=== PATIENT | female | born 1980 | race African-American/Black ===

== ENCOUNTER 2021-10-10 16:25 | Emergency (ER) | payer SELFPAY ==
[2021-10-10] MEDS ORDERED: Metoclopramide HCl 10 MG/2 ML VIAL ONE (17:08)
[2021-10-10] MEDS ORDERED: Ketorolac Tromethamine 30 MG/ML VIAL ONE (17:08)
[2021-10-10] MEDS ORDERED: diphenhydrAMINE 50 MG/ML VIAL ONE (17:08)
[2021-10-10 17:31] LABS: #Monocytes 0.4 10x3/uL (0.0-1.1); #Neutrophils 3.1 10x3/uL (1.5-8.4); %Basophils 0.8 % (0.0-2.0); %Eosinophils 0.5 % (0.0-6.0); %Lymphocytes 8.3 % (18.0-47.0); %Monocytes 11.1 % (0.0-10.0); %Neutrophils 78.8 % (40.0-75.0); Hemoglobin 12.9 g/dL (12.0-15.5); Mean Corpuscular HGB CONC 33.7 g/dL (32.0-36.0); Mean Corpuscular Volume 83.3 fl (81.6-98.3); Mean Platelet Volume 10.4 fl (7.4-10.4); Platelet Count 190 10x3/uL (150-450); White Blood Cell (WBC) Count 3.9 10x3/uL (3.5-10.5)
[2021-10-10 17:38] LABS: BHCG - Serum Negative (NEGATIVE); Pregs Control Background? CLEAR/WHITE (CLR/WHITE); Pregs Control Bar Appear? YES (CONTROL BAR)
[2021-10-10 17:45] LABS: ALT (SGPT) 14 U/L (8-55); AST (SGOT) 20 U/L (5-34); Albumin 4.8 g/dL (3.5-5.0); Alkaline Phosphatase 49 U/L (40-110); Anion Gap 15 mmol/L (10-20); BUN (Urea Nitrogen) 13 mg/dL (7.0-18.7); Bilirubin, Total 0.2 mg/dL (0.2-1.2); Calc. Creatinine Clearance 0 mL/min (70-130); Calcium 9.6 mg/dL (7.8-10.44); Carbon Dioxide 22 mmol/L (22-29); Chloride 100 mmol/L (98-107); Estimated GFR 95; Globulin 3.7 g/dL (2.4-3.5); Glucose 99 mg/dL (70-105); Lipase 8 U/L (8-78); Potassium 3.6 mmol/L (3.5-5.1); Protein, Total 8.5 g/dL (6.0-8.3); Sodium 133 mmol/L (136-145)
== END 2021-10-10 18:45 | disposition home or self-care (01) ==
LOC: CSHERS 16:25
DX: U07.1 COVID-19 (principal); F17.210 Nicotine dependence, cigarettes, uncomplicated
CPT/HCPCS: 80053; 83690; 84703; 85025; 96365; 96375; J1200; J1885; J2765; U0003; U0005